=== PATIENT | female | born 1935 | race Caucasian/White ===

== ENCOUNTER 2017-10-24 10:49 | Emergency (ER) | payer MEDICARE, SELFPAY ==
[2017-10-24 10:51] VITALS: BP 142/115; BP 149/88; PULSE 108; PULSE 111; RESP 110; RESP 18; TEMP 37.1; O2SAT 98; BMI 36.6
--- NOTE | 2017-10-24 11:44 | ED.DCSUM_ITS ---
- ER Visit Summary Date of Service: 10/24/17 Chief Complaint: Sent from dentist office because of intermittent vertigo and elevated blood pressure History of Present Illness: The patient is a 82 F who presents with intermittent vertigo for the past 24 hours. The vertigo is positional. She made the comment if she closes her eyes and shakes her head resolved. She denies any double vision, blurred vision or loss of vision. She denies headache. She denies ringing in her ears or decreased hearing. She has no trouble with speech or swallowing. She denies any cardiac respiratory symptoms. She does not have history of hypertension. She was last seen by her doctor 6 months ago. She does complain of nausea without vomiting diarrhea or abdominal pain. She denies back pain or neck pain. She denies paresthesia, anesthesia or motor weakness. She states she feels unsteady that he when the symptoms start. There is no history of trauma. Please read written note for complete detail Physical Examination: Blood pressure is elevated at 149/88. She is afebrile and she is not hypoxic. Head is atraumatic normocephalic. Pupils are equal round reactive. Extraocular muscles are intact. TMs are pearly white with landmarks noted. Nares patent with no drainage. Posterior pharynx without erythema or exudate. Uvula is midline. There is no dysphonia or dysphasia. Trachea is midline. There is no stridor with auscultation of the neck. Funduscopic exam reveals no papilledema. Neck is supple. There is no carotid bruit. Heart is regular without murmur, gallop or rub. S1 and S2 are normal. Lungs are clear to auscultation with good movement of air bilaterally. Patient is alert and oriented ?3. Motor is 5 over 5. Sensory is intact. DTRs are symmetric with no clonus or Babinski sign. Cranial 2 through 12 are intact. Cerebellar testing is normal. Romberg test with eyes open and closes normal. Ashwin-Hallpike test was negative. Eye Askew test was negative. She is presently symptom-free. Test Results: BMP is unremarkable. UA revealed blood, 50 on macro. Repeat blood pressure is 135/55 without treatment Emergency Department Course and Treatment: She has had multiple elevated blood pressure readings. Will obtain BMP and UA. She will be observed. She was placed on a monitor. Treatment Plan: Appointment with primary care physician Dr. Treviño. Disposition: Discharged to home with son with appropriate home-going instructions Impression: 1. Paroxysmal benign positional vertigo 2. Asymptomatic elevated blood pressure in nonhypertensive patient This note was generated with [employer] dictation software. It may contain incorrect words, spelling, and punctuation that were not noted in review of the chart prior to signing ED Disposition - Plan for ED Patient: Disposition: Home or Assisted Living Chief Complaint: Hypertension Instructions: ED Hypertension Poss, ED BPV Vertigo Referrals: Alexandro Treviño MD [Primary Care Provider] - Keep Gilda appointment
[2017-10-24 12:20] LABS: Anion Gap 7 (5-15); BUN 16 mg/dL (7-18); BUN/Creat Ratio 18.3 RATIO (10-20); Calcium,Total 9.5 mg/dL (8.5-10.1); Chloride 106 mmol/L (98-107); Creatinine, Serum 0.88 mg/dL (0.55-1.02); EST Glomerular Filtration Rate 66 mL/min (>60); Est Glom Filt Rate - Afr Amer 80 mL/min (>60); Estimated Creatinine Clearance 65.14 ml/min; Glucose 105 mg/dL (74-106); Potassium 4.2 mmol/L (3.5-5.1); Sodium Level 142 mmol/L (136-145)
[2017-10-24 12:22] LABS: Color, Urine Straw (Yellow); Glucose, Dipstick Normal (Normal); Ketone-Dipstick Negative (Negative); Leukocyte Esterase-Dipstick 500 /ul (Negative); Nitrite-Dipstick Negative (Negative); Occult Blood-Urine 150 /ul (Negative); Protein-Dipstick Negative (Negative); Urine Bilirubin Dipstick Negative (Negative); Urine Clarity Sl. Cloudy (Clear); Urine Urobilinogen Normal (Normal)
[2017-10-24 12:40] VITALS: BP 134/55; PULSE 80; RESP 18; TEMP 36.6; O2SAT 95
[2017-10-24 13:07] VITALS: BP 125/47; PULSE 79; RESP 22; O2SAT 98
--- NOTE | 2017-10-24 13:08 | ED.RN ---
THIS NURSE REVIEWED D/C INSTRUCTIONS WITH PT. PT VERBALIZED UNDERSTANDING OF INSTRUCTIONS. IV D/C. IV CATHETER INTACT. PT TOLERATED WELL. PT DENIES FURTHER NEEDS AT THIS TIME
== END 2017-10-24 13:09 | disposition home or self-care (01) ==
PROVIDERS: Emergency Provider Emergency Medicine; Family Provider Family Medicine; PCP Family Medicine
DX: H81.10 Benign paroxysmal vertigo, unspecified ear (principal); R03.0 Elevated blood-pressure reading, without diagnosis of hypertension
CPT/HCPCS: 80048; 81002; 99285; A4216

== ENCOUNTER → 2018-05-14 06:14 | Outpatient (CLI) | payer MEDICARE, SELFPAY ==
--- NOTE | 2018-05-14 14:37 | STRESSREP ---
Stress Test Report Pharmacologic myocardial perfusion stress test. 82-year-old lady with a history of cardiomyopathy. Stress protocol: Resting EKG demonstrates normal sinus rhythm with a rate of 75 bpm left bundle branch block is noted with premature ventricular complexes present. 0.4 mg of regadenoson was infused per usual protocol followed by rapid intravenous saline flush injection continuous conveyor monitor was performed. The patient maintained sinus rhythm throughout the recording with occasional premature ventricular complexes. At rest there were no ST or T wave changes noted suggest abnormal flow reserve left bundle branch block pattern was noted at peak infusion nonspecific ST-T wave changes were noted. The maximum heart rate was 89 bpm which was 64% of maximum predicted heart rate. Resting blood pressure was 140/86 with a peak blood pressure of the same. Myocardial perfusion protocol. 11.4 mCi of technetium 99m sestamibi was injected at rest. 0.4 mg of regadenoson was infused per usual protocol peak infusion 34.1 mCi of technetium 99m sestamibi was injected stress images were obtained stress and rest images were reconstructed and compared in the short axis vertical long horizontal long axis. Gated images were also obtained Perfusion SPECT analysis: Review of the stress images demonstrate reduced perfusion in the anterior wall on the stress and resting images to a similar extent. The inferior septal wall mid inferior and inferolateral wall appeared to be well perfused. No evidence of reversibility is noted suggest ischemia. Previous anterior infarct cannot be completely excluded though. Gated SPECT analysis: The gated ejection fraction is 32% with global hypokinesis present. Conclusion: Cardiomyopathy present. No obvious ischemia noted. Left bundle branch block pattern.
--- NOTE | 2018-05-14 14:45 | STRESSREP_ITS ---
Stress Test Report Pharmacologic myocardial perfusion stress test. 82-year-old lady with a history of cardiomyopathy. Stress protocol: Resting EKG demonstrates normal sinus rhythm with a rate of 75 bpm left bundle branch block is noted with premature ventricular complexes present. 0.4 mg of regadenoson was infused per usual protocol followed by rapid intravenous saline flush injection continuous satellite project site monitor was performed. The patient maintained sinus rhythm throughout the recording with occasional premature ventricular complexes. At rest there were no ST or T wave changes noted suggest abnormal flow reserve left bundle branch block pattern was noted at peak infusion nonspecific ST-T wave changes were noted. The maximum heart rate was 89 bpm wh ich was 64% of maximum predicted heart rate. Resting blood pressure was 140/86 with a peak blood pressure of the same. Myocardial perfusion protocol. 11.4 mCi of technetium 99m sestamibi was injected at rest. 0.4 mg of regadenoson was infused per usual protocol peak infusion 34.1 mCi of technetium 99m sestamibi was injected stress images were obtained stress and rest images were reconstructed and compared in the short axis vertical long horizontal long axis. Gated images were also obtained Perfusion SPECT analysis: Review of the stress images demonstrate reduced perfusion in the anterior wall on the stress and resting images to a similar extent. The inferior septal wall mid inferior and inferolateral wall appeared to be well perfused. No evidence of reversibility is noted suggest ischemia. Previous anterior infarct cannot be completely excluded though. Gated SPECT analysis: The gated ejection fraction is 32% with global hypokinesis present. Conclusion: Cardiomyopathy present. No obvious ischemia noted. Left bundle branch block pattern.
== END ==
PROVIDERS: Family Provider Family Medicine; PCP Family Medicine; Referring Provider Internal Medicine Cardiovascular Disease; Visit Provider Internal Medicine Cardiovascular Disease
DX: I42.0 Dilated cardiomyopathy (principal); I44.7 Left bundle-branch block, unspecified; R94.31 Abnormal electrocardiogram [ECG] [EKG]
CPT/HCPCS: 78452; 93017; A9500; A4216; J2785

== ENCOUNTER → 2018-09-14 08:45 | Outpatient (CLI) | payer MEDICARE, SELFPAY ==
[2018-08-24 10:16] VITALS: BMI 35.9
--- NOTE | 2018-09-14 08:47 | ECHOD_ITS ---
Reason For Study: HTN Procedure This was a 2D Doppler, Color Flow transthoracic echocardiogram. Exam performed in department. Left Ventricle Normal LV size. The estimated ejection fraction is 37 %. Moderate global left ventricular systolic dysfunction. Stage 1 diastolic dysfunction. No regional wall motion abnormalities noted. Right Ventricle Normal RV size. Normal systolic function. Atria Normal left atrium. Normal right atrium. Mitral Valve Normal mitral valve. Tricuspid Valve Normal tricuspid valve. Aortic Valve Trisinus/trileaflet aortic valve. Mild focal aortic valve calcification. Pulmonic Valve Normal pulmonic valve. Great Vessels Normal aortic root. The pulmonary artery is normal size. Normal inferior vena cava. Pericardium/Pleural No pericardial effusion. MMode/2D Measurements & Calculations LVIDd: 4.9 cm IVSd: 1.0 cm LVOT diam: 2.0 cm LVIDs: 4.3 cm LVPWd: 1.1 cm LVOT area: 3.0 cm2 RVDd: 2.8 cm FS: 11.3 % Ao root diam: 2.6 cm LAV(MOD-bp): 46.8 ml Aortic Valve Planimetry: 1.5 cm2 LAV(MOD-bp) Indexed: 26.7 ml/m2 LAV(MOD-sp2): 53.9 ml LAV(MOD-sp4): 39.7 ml LA dimension(2D): 3.6 cm LA A4 area: 14.9 cm2 RA A4 area: 12.7 cm2 Time Measurements MV dec time: 0.29 sec Doppler Measurements & Calculations MV E max franky: 50.0 cm/sec Lat Peak E' Franky: 2.6 cm/sec Med Peak E' Franky: 2.3 cm/sec MV A max franky: 84.0 cm/sec E/E' lat: 19.4 E/E' med: 21.5 MV E/A: 0.59 Ao V2 max: 172.1 cm/sec LV V1 max: 89.5 cm/sec SV(LVOT): 51.8 ml Ao max P.9 mmHg LV V1 max P.2 mmHg Ao V2 mean: 131.8 cm/sec LV V1 mean P.0 mmHg Ao mean P.4 mmHg LV V1 mean: 68.2 cm/sec Ao V2 VTI: 35.5 cm LV V1 VTI: 17.1 cm EDMUND(I,D): 1.5 cm2 EDMUND(V,D): 1.6 cm2 PA V2 max: 147.8 cm/sec Interpretation Summary Normal LV size. The estimated ejection fraction is 37 %. Moderate global left ventricular systolic dysfunction. Stage 1 diastolic dysfunction. Ordering Physician: James Christianson Referring Physician: Yony Larson Performed By: Brian, Danae, RDCS, RVT
== END ==
PROVIDERS: Family Provider Family Medicine; PCP Family Medicine; Referring Provider Internal Medicine Cardiovascular Disease; Visit Provider Internal Medicine Cardiovascular Disease
DX: I35.0 Nonrheumatic aortic (valve) stenosis (principal); I10 Essential (primary) hypertension
CPT/HCPCS: 93306

== ENCOUNTER → 2019-12-19 09:33 | Outpatient (CLI) | payer MEDICARE, SELFPAY ==
[2019-12-19 08:58] VITALS: BMI 36.5
[2019-12-19 09:51] LABS: Absolute Lymphocyte Count 2.45 X10^3/uL (0.83-4.51); Absolute Neutrophil Count 3.4 X10^3/uL (2.0-7.7); Basophil# 0.03 X10^3/uL; Basophil% 0.5 % (0-1); Eosinophil# 0.05 X10^3/uL; Eosinophils% 0.8 % (0-5); Hematocrit 44.3 % (37-47); Hemoglobin 14.5 g/dL (12.0-15.0); Lymphocyte # 2.45 X10^3/ul (4.0); Mean Corp Hgb Conc 32.7 g/dL (32-36); Mean Corpuscular Hgb 30.8 pg (27.0-32.0); Mean Corpuscular Volume 94.1 fL (81-99); Mean Platelet Vol. 11.9 fl (6.2-12.0); Monocyte# 0.64 X10^3/uL; Monocyte% 9.7 % (0-10); NRBC Flagged by Analyzer 0 % (0-5); Neutrophil # 3.44 X10^3/uL (2.7-7.7); Neutrophil % 51.7 % (47-70); Platelet Count 208 K/mm3 (150-450); RBC Distribution Width CV 13.2 % (11.6-14.6); RBC Distribution Width SD 45.7 fl (35.1-43.9); Red Blood Count 4.71 M/mm3 (4.2-5.4); White Blood Count 6.6 K/mm3 (4.4-11.0)
[2019-12-19 10:30] LABS: Anion Gap 7 (5-15); BUN 15 mg/dL (7-18); BUN/Creat Ratio 14.9 RATIO (10-20); Calcium,Total 9.5 mg/dL (8.5-10.1); Chloride 107 mmol/L (98-107); Creatinine, Serum 1.01 mg/dL (0.55-1.02); EST Glomerular Filtration Rate 56 mL/min (>60); Est Glom Filt Rate - Afr Amer 67 mL/min (>60); Glucose 89 mg/dL (74-106); Potassium 4.3 mmol/L (3.5-5.1); Sodium Level 140 mmol/L (136-145); Thyroid Stim Hormone (TSH) 1.44 uIU/mL (0.358-3.74)
== END ==
PROVIDERS: PCP Family Medicine; Referring Provider Physician Assistant Medical; Visit Provider Physician Assistant Medical
DX: E78.00 Pure hypercholesterolemia, unspecified (principal); R53.83 Other fatigue
CPT/HCPCS: 36415; 80048; 84443; 85025

== ENCOUNTER → 2021-01-07 09:44 | Outpatient (CLI) | payer MEDICARE, SELFPAY ==
[2020-12-24 10:25] VITALS: BMI 36.1
--- NOTE | 2021-01-07 09:46 | ECHOD_ITS ---
Reason For Study: CMP Procedure This was a 2D Doppler, Color Flow transthoracic echocardiogram. Exam performed in department. Left Ventricle Normal LV size. The estimated ejection fraction is 35 %. Stage 1 diastolic dysfunction. Right Ventricle Normal RV size. Normal systolic function. Atria Normal left atrium. Normal right atrium. Mitral Valve Normal mitral valve. Tricuspid Valve Normal tricuspid valve. Mild tricuspid valve insufficiency. Pulmonary artery systolic pressure is 20 mmHg. Aortic Valve Trisinus/trileaflet aortic valve. Mild focal aortic valve calcification. Pulmonic Valve Normal pulmonic valve. Great Vessels Normal aortic root. Pericardium/Pleural No pericardial effusion. MMode/2D Measurements & Calculations LVIDd: 5.1 cm IVSd: 0.98 cm Ao root diam: 3.3 cm LVIDs: 4.2 cm LVPWd: 1.0 cm RVDd: 3.1 cm FS: 17.1 % LAV(MOD-bp): 39.6 ml LVAd ap4: 33.6 cm2 SV(MOD-sp4): 37.8 ml LAV(MOD-bp) Indexed: 22.5 ml/m2 LVLd ap4: 8.2 cm LAV(MOD-sp2): 42.3 ml EDV(MOD-sp4): 111.9 ml LAV(MOD-sp4): 36.0 ml EDV(sp4-el): 116.3 ml LVAs ap4: 26.0 cm2 LVLs ap4: 7.5 cm ESV(MOD-sp4): 74.1 ml ESV(sp4-el): 76.5 ml EF(MOD-sp4): 33.8 % EF(sp4-el): 34.2 % SV(sp4-el): 39.7 ml LA A4 area: 14.2 cm2 LA dimension(2D): 4.0 cm RA A4 area: 12.6 cm2 Time Measurements MV dec time: 0.33 sec Doppler Measurements & Calculations MV E max franky: 46.1 cm/sec Lat Peak E' Franky: 2.2 cm/sec Med Peak E' Franky: 2.2 cm/sec MV A max franky: 90.3 cm/sec E/E' lat: 21.0 E/E' med: 21.0 MV E/A: 0.51 Ao V2 max: 167.8 cm/sec LV V1 max: 77.9 cm/sec PA V2 max: 145.2 cm/sec Ao max P.3 mmHg LV V1 max P.4 mmHg PI end-d franky: 113.8 cm/sec TR max franky: 197.2 cm/sec TR max P.6 mmHg ECHO/Echo Complete Interpretation Summary Normal LV size. The estimated ejection fraction is 35 %. Stage 1 diastolic dysfunction. Pulmonary artery systolic pressure is 20 mmHg. Compared to previous study, the left ventricular systolic function is the same. . Ordering Physician: James Christianson Referring Physician: RAMESH MIX Performed By: Delores Dyson RDCS, RVT
== END ==
PROVIDERS: PCP Family Medicine; Referring Provider Internal Medicine Cardiovascular Disease; Visit Provider Internal Medicine Cardiovascular Disease
DX: I44.7 Left bundle-branch block, unspecified (principal)
CPT/HCPCS: 93306